=== PATIENT | male | born 1975 | race Caucasian/White ===

== ENCOUNTER 2021-11-03 21:34 | Emergency (ER) | payer OTHER, SELFPAY ==
[2021-11-03] MEDS ORDERED: traMADol HCl 50 MG TAB ONE (22:14)
[2021-11-03] MEDS ORDERED: Boostrix 0.5 ML (Tdap) VIAL ONE (22:14)
== END 2021-11-03 22:46 | disposition home or self-care (01) ==
LOC: NAV ERS 21:34
DX: S92.321A Displaced fracture of second metatarsal bone, right foot, initial encounter for closed fracture (principal); S92.331A Displaced fracture of third metatarsal bone, right foot, initial encounter for closed fracture; S92.341A Displaced fracture of fourth metatarsal bone, right foot, initial encounter for closed fracture; V48.5XXA Car driver injured in noncollision transport accident in traffic accident, initial encounter
CPT/HCPCS: 90471; 90715